=== PATIENT | male | born 1995 | race Caucasian/White ===

== ENCOUNTER 2017-05-31 10:34 | Emergency (ER) | payer SELFPAY ==
[2017-05-31 10:35] VITALS: BMI 21.6
--- NOTE | 2017-05-31 11:16 | ED PDOC ---
HPI: General Adult Time Seen by Provider: 05/31/17 10:48 Chief Complaint (Nursing): Shortness Of Breath Chief Complaint (Provider): med eval History Per: Patient Additional Complaint(s): 22-year-old male with no past medical history presents to emergency department with headache, shortness of breath and nausea status post being exposed to bleach while at work yesterday. 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 Patient states he had prolonged exposure to Clorox and now has presenting symptoms. He did not take anything for headache pain. He denies any dizziness or vision changes. Denies any chest pain but does feel short of breath. No associated vomiting or diarrhea. Past Medical History Reviewed: Historical Data, Nursing Documentation, Vital Signs Vital Signs: Last Vital Signs Temp 97.0 F L 05/31/17 10:52 Pulse 67 05/31/17 10:52 Resp 16 05/31/17 10:52 BP 142/73 05/31/17 10:52 Pulse Ox 99 05/31/17 12:25 - Medical History PMH: No Chronic Diseases - Surgical History Surgical History: Hernia Repair (left inguinal) - Family History Family History: States: No Known Family Hx - Living Arrangements Living Arrangements: With Friends/Others - Social History Current smoker - smoking cessation education provided: No Ex-Smoker (has not smoked in the last 12 months): Yes (quit 1 week ago) Alcohol: Social Drugs: Denies - Home Medications Home Medications: Ambulatory Orders Medication Instructions Recorded Albuterol HFA [Ventolin HFA 90 1 puff IH ASDIR #1 unit 05/31/17 mcg/actuation (8 g)] - Allergies Allergies/Adverse Reactions: Allergies Allergy/AdvReac Type Severity Reaction Status Date / Time ibuprofen Allergy ANGIOEDEMA Verified 05/31/17 10:54 Review of Systems ROS Statement: Except As Marked, All Systems Reviewed And Found Negative Constitutional: Positive for: Malaise. Negative for: Fever, Chills Cardiovascular: Negative for: Chest Pain Gastrointestinal: Positive for: Nausea. Negative for: Vomiting, Abdominal Pain , Diarrhea, Constipation Neurological: Positive for: Headache. Negative for: Weakness, Numbness, Incoordination, Change in Speech, Confusion, Seizures, Altered Mental Status, Dizziness Physical Exam - Reviewed Nursing Documentation Reviewed: Yes Vital Signs Reviewed: Yes - Physical Exam Appears: Positive for: Well, Non-toxic, No Acute Distress Head Exam: Positive for: ATRAUMATIC, NORMAL INSPECTION Skin: Negative for: Rash Eye Exam: Positive for: Normal appearance, EOMI, PERRL ENT: Positive for: Normal ENT Inspection Neck: Positive for: Normal Cardiovascular/Chest: Positive for: Regular Rate, Rhythm Respiratory: Positive for: Normal Breath Sounds. Negative for: Wheezing, Respiratory Distress Gastrointestinal/Abdominal: Positive for: Soft. Negative for: Tenderness, Distended, Guarding, Rebound Back: Positive for: Normal Inspection Extremity: Positive for: Normal ROM. Negative for: Pedal Edema Neurologic/Psych: Positive for: Alert, Oriented - Laboratory Results Result Diagrams: 05/31/17 11:30 05/31/17 11:30 - ECG Interpretation Of ECG: NSR 61 bpm, no acute finding, reviewed by PA and ED attending O2 Sat by Pulse Oximetry: 99 Pulse Ox Interpretation: Normal - Other Rad bedside chest X-Ray: Interpreted by Me, Viewed By Me X-Ray Interpretation: no acute finding Medical Decision Making Medical Decision Makin22 year old male with malaise s/p exposure to bleach Plan: CBC CMP EKG IVF IV zofran PO tylenol Duoneb x 1 Patient is aware of all diagnostic testing results. He feels much better after medications given in ED. Patient given prescription for albuterol inhaler and was instructed to continue with Tylenol for pain. He was referred to clinic for follow-up. Disposition - Clinical Impression Clinical Impression: Chemical exposure - Patient ED Disposition Is Patient to be Admitted: No Counseled Patient/Family Regarding: Studies Performed, Diagnosis, Need For Followup, Rx Given - Disposition Referrals: [facility] [Outside] Disposition: Routine/Home Disposition Time: 13:02 Condition: IMPROVED Additional Instructions: Continue with [id number] Tylenol for headache as needed. Use inhaler as directed as needed. Follow up with primary doctor or clinic in 2-3 days. Prescriptions: Albuterol HFA [Ventolin HFA 90 mcg/actuation (8 g)] 1 puff IH ASDIR #1 unit Instructions: Chemical Pneumonitis (ED) Forms: [employer] (Slovenian), [facility] ED School/Work Excuse Results - Lab Results Lab Results: 05/31/17 05/31/17 11:30 11:30 WBC 7.1 RBC 4.96 Hgb 16.1 Hct 48.0 MCV 96.7 H MCH 32.5 H MCHC 33.6 RDW 12.7 Plt Count 151 MPV 9.8 Neut % (Auto) 65.6 Lymph % (Auto) 24.7 Andrew % (Auto) 8.0 Eos % (Auto) 1.4 Baso % (Auto) 0.3 Neut # 4.7 Lymph # 1.8 Andrew # 0.6 Eos # 0.1 Baso # 0.0 Sodium 141 Potassium 3.9 Chloride 107 Carbon Dioxide 22 Anion Gap 16 BUN 15 Creatinine 0.7 L Est GFR ( Amer) > 60 Est GFR (Non-Af Amer) > 60 Random Glucose 102 Calcium 9.2 Total Bilirubin 1.2 AST 27 ALT 37 Alkaline Phosphatase 66 Total Protein 7.9 Albumin 4.6 Globulin 3.2 Albumin/Globulin Ratio 1.4
[2017-05-31] MEDS ORDERED: Albuterol-Ipratrop 3 mg / 0.5 (3 ml) UD INH STA (11:19)
[2017-05-31] MEDS ORDERED: Sodium Chloride 0.9% 1,000 ML IV STA (11:19)
[2017-05-31 11:59] LABS: BASO % 0.3 % (0.0-2.0); EOS # 0.1 K/uL (0.0-0.7); EOS % 1.4 % (0.0-4.0); LYMPH # 1.8 K/uL (1.0-4.3); LYMPH % 24.7 % (20.0-40.0); MEAN CELL VOLUME 96.7 fl (80.0-94.0); MEAN CORPUSCULAR HEMOGLOBIN 32.5 pg (27.0-31.0); MEAN CORPUSCULAR HGB CONC 33.6 g/dL (33.0-37.0); MEAN PLATELET VOLUME 9.8 fl (7.2-11.7); MONO # 0.6 K/uL (0.0-0.8); NEUT # 4.7 K/uL (1.8-7.0); NEUT % 65.6 % (50.0-75.0); NRBC % 0.1 % (0.0-0.0); RED CELL DISTRIBUTION WIDTH 12.7 % (11.5-14.5); WHITE BLOOD COUNT 7.1 K/uL (4.8-10.8)
[2017-05-31 12:02] LABS: ALB/GLOB RATIO 1.4 (1.0-2.1); ALKALINE PHOSPHATASE 66 U/L (38-126); ALT/SGPT 37 U/L (21-72); AST/SGOT 27 U/L (17-59); BILIRUBIN,TOTAL 1.2 mg/dl (0.2-1.3); BLOOD UREA NITROGEN 15 mg/dl (9-20); CALCIUM 9.2 mg/dL (8.4-10.2); CARBON DIOXIDE 22 mmol/L (22-30); CHLORIDE 107 mmol/L (98-107); GFR AFRICAN-AMERICAN > 60; GLUCOSE,RANDOM 102 mg/dL (75-110); POTASSIUM 3.9 MMOL/L (3.6-5.0); SODIUM 141 mmol/l (132-148); TOTAL PROTEIN 7.9 G/DL (6.3-8.2)
[2017-05-31 13:50] VITALS: BP 132/74; PULSE 61; RESP 18; TEMP 98.4; O2SAT 96
--- NOTE | 2017-05-31 14:03 | RAD ---
HISTORY: clearance COMPARISON: No prior. FINDINGS: LUNGS: No active pulmonary disease. PLEURA: No significant pleural effusion identified, no pneumothorax apparent. CARDIOVASCULAR: Normal. OSSEOUS STRUCTURES: No significant abnormalities. VISUALIZED UPPER ABDOMEN: Normal. OTHER FINDINGS: None. IMPRESSION: No acute cardiopulmonary disease appreciated.
--- NOTE | 2017-06-01 12:23 | CARD ---
APPROVED REPORT EKG Measurement Heart [id number] <Conclusion> Normal sinus rhythm Normal ECG
== END 2017-05-31 13:53 | disposition home or self-care (01) ==
LOC: H.ER 10:34
DX: Z77.098 Contact with and (suspected) exposure to other hazardous, chiefly nonmedicinal, chemicals (principal)
CPT/HCPCS: 71010; 80053; 85025; 93005; 96360; 99283; J2405; J7040

== ENCOUNTER 2018-02-05 21:18 | Emergency (ER) | payer BC ==
[2018-02-05 21:18] VITALS: BMI 21.6
[2018-02-05 21:25] VITALS: TEMP 98.5
[2018-02-05] MEDS ORDERED: Sodium Chloride 0.9% 1,000 ML IV STA (22:00)
[2018-02-05 22:30] LABS: BASO % 0.2 % (0.0-2.0); EOS # 0.1 K/uL (0.0-0.7); EOS % 0.8 % (0.0-4.0); HEMOGLOBIN 14.7 g/dL (12.0-18.0); LYMPH # 1.1 K/uL (1.0-4.3); LYMPH % 8.9 % (20.0-40.0); MEAN CELL VOLUME 97.4 fl (80.0-94.0); MEAN CORPUSCULAR HEMOGLOBIN 32.7 pg (27.0-31.0); MEAN CORPUSCULAR HGB CONC 33.6 g/dL (33.0-37.0); MEAN PLATELET VOLUME 9.4 fl (7.2-11.7); MONO % 8.1 % (0.0-10.0); NEUT # 10.1 K/uL (1.8-7.0); PLATELET COUNT 126 K/uL (130-400); RED CELL DISTRIBUTION WIDTH 12.8 % (11.5-14.5); WHITE BLOOD COUNT 12.3 K/uL (4.8-10.8)
--- NOTE | 2018-02-05 22:39 | ED PDOC ---
HPI: Abdomen Time Seen by Provider: 02/05/18 21:33 Chief Complaint (Nursing): Abdominal Pain Chief Complaint (Provider): abdominal pain History Per: Patient History/Exam Limitations: no limitations Onset/Duration Of Symptoms: Hrs (16:00 today), Intermittent Episodes Location Of Pain/Discomfort: Epigastric Quality Of Discomfort: Cramping Associated Symptoms: Nausea. denies: Fever, Chills, Vomiting, Diarrhea, Chest Pain, Urinary Symptoms Additional Complaint(s): Joel Haynes is a 22 year old male, with no significant past medical history, who presents to the emergency department of an intermittent crampy epigastric pain associated with nausea onset since 16:00 today. States that he has bad eating habits and typically doesn't eat all day.Patient states pain is non radiating and he is currently on Amoxicillin for x2 days for throat infection, which was Rx by his PMD. Otherwise no rash, vomiting, diarrhea, fever, chills, back pain, chest pain, shortness of breath or urinary symptoms. No further medical complaints. Abdominal sx - hernia repair 1 year ago. PMD: [facility] Past Medical History Reviewed: Historical Data, Nursing Documentation, Vital Signs Vital Signs: Last Vital Signs Temp 98.5 F 02/05/18 21:22 Pulse 72 02/05/18 21:22 Resp 16 02/05/18 21:22 BP 143/74 02/05/18 21:22 Pulse Ox 99 02/06/18 00:26 - Medical History PMH: Hiatal Hernia, Hyperthyroidism - Surgical History Surgical History: Hernia Repair (left inguinal) - Family History Family History: States: Unknown Family Hx - Social History Ex-Smoker (has not smoked in the last 12 months): Yes Alcohol: Social Drugs: Denies - Home Medications Home Medications: Ambulatory Orders Medication Instructions Recorded Albuterol HFA [Ventolin HFA 90 1 puff IH ASDIR #1 unit 05/31/17 mcg/actuation (8 g)] Famotidine [Pepcid] 40 mg PO DAILY #30 tablet 02/06/18 - Allergies Allergies/Adverse Reactions: Allergies Allergy/AdvReac Type Severity Reaction Status Date / Time ibuprofen Allergy ANGIOEDEMA Verified 05/31/17 10:54 Review of Systems ROS Statement: Except As Marked, All Systems Reviewed And Found Negative Constitutional: Negative for: Fever, Chills Cardiovascular: Negative for: Chest Pain Respiratory: Negative for: Shortness of Breath Gastrointestinal: Positive for: Nausea, Abdominal Pain (intermittent crampy). Negative for: Vomiting, Diarrhea Genitourinary Male: Negative for: Dysuria, Frequency Physical Exam - Reviewed Nursing Documentation Reviewed: Yes Vital Signs Reviewed: Yes - Physical Exam Comments: GENERAL APPEARANCE: Patient is awake, alert, oriented x 3, in mild painful distress. SKIN: Warm, dry; (-) cyanosis. EYES: (-) conjunctival pallor, (-) scleral icterus. ENMT: Mucous membranes dry. (+) Tonsillar erythema and exudates NECK: (-) tenderness, (-) stiffness, (-) lymphadenopathy. CHEST AND RESPIRATORY: (-) rales, (-) rhonchi, (-) wheezes; breath sounds equal bilaterally. HEART AND CARDIOVASCULAR: (-) irregularity; (-) murmur, (-) gallop. ABDOMEN AND GI: (-) distention. Bowel sounds active; (+) mild tenderness in epigastric and RLQ tenderness, (-) guarding, (-) rebound, (-) palpable masses, ( -) CVA tenderness. EXTREMITIES: (-) deformity, (-) edema, (+) distal pulses. NEURO AND PSYCH: Mental status as above; (-) focal findings. - Laboratory Results Result Diagrams: 02/05/18 22:27 02/05/18 22:27 - ECG O2 Sat by Pulse Oximetry: 99 (RA) Pulse Ox Interpretation: Normal Medical Decision Making Medical Decision Making: Time: 21:33 Initial Impression: abdominal pain Initial Plan: --CMP --Lipase --Urine dipstick --CBC w/ differential --Pepcid 20 mg IVP --Sodium Chloride 1,000 ml IV 1,000 mls/hr --Zofran inj 4 mg IVP --Infectious Mononucleosis --Rapid Strep Group A Antigen --Reevaluation On re-evaluation, patient reports improvement of symptoms, denies any abdominal pain or nausea, states that he is hungry and wants to eat. On exam, patient remains AAOx3, in no acute distress. Abdomen soft, non-tender, no guarding, no rebound, no tenderness at McBurney's point. Lab results reviewed : wbc 12, cmp wnl, mono (-), rapid strep (-), udip (-). Diagnostic results d/w the patient in great detail. Diagnosis of viral pharyngitis, dyspepsia d/w the patient. Patient tolerated po fluids and a sandwich. Based on history, exam and diagnostic results, plan will be for outpatient follow up. Patient instructed to follow-up with pmd in 1-2 days without fail. Advised to take medication as prescribed. Advised to eat regular small meals. Return to the emergency room at any time for any new or worsening symptoms. Patient states he fully agrees with and understands discharge instructions. States that he agrees with the plan and disposition. Verbalized and repeated discharge instructions and plan. I have given the patient opportunity to ask any additional questions. ----- Scribe Attestation: Documented by Price Mistry, acting as a scribe for Sara Prakash PA-C. Provider Scribe Attestation: All medical record entries made by the Scribe were at my direction and personally dictated by me. I have reviewed the chart and agree that the record accurately reflects my personal performance of the history, physical exam, medical decision making, and the department course for this patient. I have also personally directed, reviewed, and agree with the discharge instructions and disposition. Disposition - Clinical Impression Clinical Impression: Viral pharyngitis, Abdominal pain, Dyspepsia - Patient ED Disposition Is Patient to be Admitted: No Counseled Patient/Family Regarding: Studies Performed, Diagnosis, Need For Followup, Rx Given - Disposition Disposition: Routine/Home Disposition Time: 00:00 Condition: IMPROVED Additional Instructions: Thank you for letting us take care of you today. You were treated for viral pharyngitis, abdominal pain, dyspepsia. The emergency medical care you received today was directed towards the acute presenting symptoms. If you were prescribed any medication, please fill it and give as directed. It may take several days for your symptoms to resolve. Return to the Emergency Department at any time if symptoms worsen, do not improve, or if any other problems arise. Please contact your doctor in 2 days for re-evaluation and follow up. Bring any paperwork you were given at discharge with you along with any medications to your follow up visit. Our treatment cannot replace ongoing medical care by a primary care provider (PCP) outside of the emergency department. Thank you for allowing the [email or web address] team to be part of your care today. Prescriptions: Famotidine [Pepcid] 40 mg PO DAILY #30 tablet Instructions: Viral Pharyngitis, Dyspepsia (DC) Forms: [employer] (Pakistani)
[2018-02-05 22:42] LABS: ALB/GLOB RATIO 1.4 (1.0-2.1); ALBUMIN 4.2 g/dL (3.5-5.0); ALT/SGPT 27 U/L (21-72); AST/SGOT 27 U/L (17-59); BLOOD UREA NITROGEN 9 mg/dl (9-20); CALCIUM 8.9 mg/dL (8.4-10.2); GFR NON-AFRICAN AMERICAN > 60; LIPASE 15 U/L (23-300)
[2018-02-05 23:13] LABS: BANDS 2 % (0-2); EOSINOPHIL 2 % (0-7); LYMPHOCYTE 10 % (20-50); MONOCYTE 7 % (0-10); NEUTROPHIL 79 % (42-75); PLATELET ESTIMATE NORMAL (NORMAL); TOTAL CELLS COUNTED 100
[2018-02-05 23:14] LABS: TOXIC GRANULATION PRESENT
[2018-02-06 01:02] VITALS: BP 131/84; PULSE 80; RESP 18; O2SAT 100
== END 2018-02-06 00:40 | disposition home or self-care (01) ==
LOC: H.ER 21:18
DX: J02.9 Acute pharyngitis, unspecified (principal); R10.9 Unspecified abdominal pain; R13.10 Dysphagia, unspecified
CPT/HCPCS: 80053; 83690; 85025; 86308; 87070; 87430; 96361; 96374; 96375; 99283; J2405; J7030

== ENCOUNTER 2018-02-15 20:28 | Emergency (ER) | payer OTHER, BC ==
[2018-02-15 20:28] VITALS: BMI 21.6
[2018-02-15 20:57] VITALS: RESP 18
--- NOTE | 2018-02-15 21:57 | ED PDOC ---
HPI: General Adult Time Seen by Provider: 02/15/18 21:09 Chief Complaint (Nursing): Groin Pain Chief Complaint (Provider): groin pain History Per: Patient History/Exam Limitations: no limitations Onset/Duration Of Symptoms: Hrs (2) Current Symptoms Are (Timing): Still Present Additional Complaint(s): 22 y/o male presents for evaluation of pain to right groin x 2 hours. 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 Pain worsened with ambulation and movement of right lower extremity. Denies vomiting, swelling to groin, testicular pain/swelling. No medication taken for relief thus far. Past Medical History Reviewed: Historical Data, Nursing Documentation, Vital Signs Vital Signs: Last Vital Signs Temp 98.5 F 02/15/18 20:52 Pulse 67 02/15/18 20:52 Resp 18 02/15/18 20:52 BP 125/69 02/15/18 20:52 Pulse Ox 100 02/15/18 22:00 - Medical History PMH: Hiatal Hernia, Hyperthyroidism - Surgical History Surgical History: Hernia Repair (left inguinal) - Family History Family History: States: Unknown Family Hx - Home Medications Home Medications: Ambulatory Orders Medication Instructions Recorded Albuterol HFA [Ventolin HFA 90 1 puff IH ASDIR #1 unit 05/31/17 mcg/actuation (8 g)] Famotidine [Pepcid] 40 mg PO DAILY #30 tablet 02/06/18 - Allergies Allergies/Adverse Reactions: Allergies Allergy/AdvReac Type Severity Reaction Status Date / Time ibuprofen Allergy ANGIOEDEMA Verified 02/15/18 20:52 Review of Systems ROS Statement: Except As Marked, All Systems Reviewed And Found Negative Gastrointestinal: Positive for: Other (groin pain) Physical Exam - Reviewed Nursing Documentation Reviewed: Yes Vital Signs Reviewed: Yes - Physical Exam Appears: Positive for: Well, Non-toxic, No Acute Distress Head Exam: Positive for: ATRAUMATIC, NORMAL INSPECTION, NORMOCEPHALIC Skin: Positive for: Normal Color Eye Exam: Positive for: Normal appearance ENT: Positive for: Normal ENT Inspection Cardiovascular/Chest: Positive for: Regular Rate, Rhythm Respiratory: Positive for: Normal Breath Sounds Gastrointestinal/Abdominal: Positive for: Normal Exam Male Genital Exam: Positive for: inguinal tenderness (right; no edema, skin color change,s palpable deformity noted), 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 Negative for: scrotum tenderness (R), scrotum tenderness (L), testicular tenderness (R), testicular tenderness (L), urethral discharge Extremity: Positive for: Normal ROM Neurologic/Psych: Positive for: Alert, Oriented (x3) - ECG O2 Sat by Pulse Oximetry: 100 - Progress ED Course And Treament: Patient educated on findings, discharged with instructions to follow up PMD 2-3 days Advised NSAIDs (patient states he has ibuprofen at home), ice/warm compresses Avoid heavy lifting/physical activity x 1 week Return precautions given Disposition - Clinical Impression Clinical Impression: Strain of muscle of right groin region - Patient ED Disposition Is Patient to be Admitted: No Counseled Patient/Family Regarding: Studies Performed, Diagnosis, Need For Followup - Disposition Disposition: Routine/Home Disposition Time: 21:59 Condition: STABLE Instructions: Groin Strain Forms: [employer] (Khmer), [facility] ED School/Work Excuse
[2018-02-16 04:13] VITALS: BP 124/64; PULSE 61; TEMP 98; O2SAT 97
== END 2018-02-15 22:30 | disposition home or self-care (01) ==
LOC: H.ER 20:28
DX: S39.011A Strain of muscle, fascia and tendon of abdomen, initial encounter (principal); X50.9XXA Other and unspecified overexertion or strenuous movements or postures, initial encounter; Y99.0 Civilian activity done for income or pay; E05.90 Thyrotoxicosis, unspecified without thyrotoxic crisis or storm

== ENCOUNTER 2018-05-17 18:15 | Emergency (ER) | payer SELFPAY ==
[2018-05-17 18:16] VITALS: BMI 21.6
[2018-05-17 18:40] VITALS: BP 144/76; PULSE 71; RESP 16; TEMP 98.2; O2SAT 98
--- NOTE | 2018-05-17 19:50 | ED PDOC ---
HPI: Back Time Seen by Provider: 05/17/18 19:28 Chief Complaint (Nursing): Back Pain Chief Complaint (Provider): Back Pain History Per: Patient History/Exam Limitations: no limitations Onset/Duration Of Symptoms: Days Current Symptoms Are (Timing): Still Present Quality Of Discomfort: "Pain" Additional Complaint(s): 23 year old male presents to the ER for an evaluation of lower back pain onset for weeks. Patient states he did heavy lifting. He took Motrin without any relief. Denies any prior back issues, fever or vomiting. Past Medical History Reviewed: Historical Data, Nursing Documentation, Vital Signs Vital Signs: Last Vital Signs Temp 98.2 F 05/17/18 18:36 Pulse 71 05/17/18 18:36 Resp 16 05/17/18 18:36 BP 144/76 05/17/18 18:36 Pulse Ox 98 05/17/18 18:36 - Medical History PMH: Hiatal Hernia, Hyperthyroidism - Surgical History Surgical History: Hernia Repair (left inguinal) - Family History Family History: States: Unknown Family Hx - Home Medications Home Medications: Ambulatory Orders Medication Instructions Recorded Albuterol HFA [Ventolin HFA 90 1 puff IH ASDIR #1 unit 05/31/17 mcg/actuation (8 g)] Famotidine [Pepcid] 40 mg PO DAILY #30 tablet 02/06/18 Naproxen 375 mg PO Q8 PRN #21 tablet 05/17/18 diaZEpam [Valium] 5 mg PO Q8 PRN #5 tab 05/17/18 - Allergies Allergies/Adverse Reactions: Allergies Allergy/AdvReac Type Severity Reaction Status Date / Time No Known Allergies Allergy Verified 05/17/18 18:36 Review of Systems ROS Statement: Except As Marked, All Systems Reviewed And Found Negative Constitutional: Negative for: Fever Gastrointestinal: Negative for: Vomiting Musculoskeletal: Positive for: Back Pain Neurological: Negative for: Weakness, Numbness Physical Exam - Reviewed Nursing Documentation Reviewed: Yes Vital Signs Reviewed: Yes - Physical Exam Appears: Positive for: Non-toxic, No Acute Distress Head Exam: Positive for: ATRAUMATIC, NORMAL INSPECTION, NORMOCEPHALIC Skin: Positive for: Normal Color, Warm, Dry. Negative for: Rash Eye Exam: Positive for: Normal appearance Back: Positive for: Other (right lower paralumbar tenderness) Neurologic/Psych: Positive for: Alert, Oriented (x3). Negative for: Motor/Sensory Deficits - ECG O2 Sat by Pulse Oximetry: 98 (RA) Pulse Ox Interpretation: Normal Medical Decision Making Medical Decision Making: Time: 1927 Initial Plan: Toradol 30mg Reevaluation Scribe Attestation: Documented by Mel Basilio, acting as a scribe for Lizabeth Dao PA-C Provider Scribe Attestation: All medical record entries made by the Scribe were at my direction and personally dictated by me. I have reviewed the chart and agree that the record accurately reflects my personal performance of the history, physical exam, medical decision making, and the department course for this patient. I have also personally directed, reviewed, and agree with the discharge instructions and disposition. Disposition - Clinical Impression Clinical Impression: Back strain - Patient ED Disposition Is Patient to be Admitted: No - Disposition Referrals: [facility] [Outside] Disposition Time: 20:20 Condition: FAIR Prescriptions: diaZEpam [Valium] 5 mg PO Q8 PRN #5 tab PRN Reason: Muscle Spasm Naproxen 375 mg PO Q8 PRN #21 tablet PRN Reason: Pain, Moderate (4-7) Instructions: Lumbar Muscle Strain (DC) Forms: [employer] (Irish), [facility] ED School/Work Excuse
== END 2018-05-17 21:00 | disposition home or self-care (01) ==
LOC: H.ER 18:15
DX: S39.012A Strain of muscle, fascia and tendon of lower back, initial encounter (principal); E05.90 Thyrotoxicosis, unspecified without thyrotoxic crisis or storm; X58.XXXA Exposure to other specified factors, initial encounter
CPT/HCPCS: 96372; 99283; J1885